=== PATIENT | male | born 1980 | race Caucasian/White ===

== ENCOUNTER 2018-01-28 09:08 | Emergency (ER) | payer SELFPAY ==
[~2018-01-28] VITALS: Ht 175.3 cm; Wt 91.2 kg
[2018-01-28 09:48] LABS: MICROSCOPIC AUTO
[2018-01-28 09:53] LABS: BASOPHILS # (AUTO) 0.12 x10^3/uL (0-0.1); BASOPHILS % (AUTO) 1 % (0-1); EOSINOPHILS # (AUTO) 0.39 x10^3/uL (0-0.4); EOSINOPHILS % (AUTO) 2 % (1-7); LYMPHOCYTES # (AUTO) 2.94 x10^3/uL (1-3.4); LYMPHOCYTES % (AUTO) 18 % (22-44); MD NO; MEAN CORPUSCULAR HEMOGLOBIN 32.2 pg (27.5-34.5); MEAN CORPUSCULAR HGB CONC 35.1 g/dL (33.2-36.2); MEAN CORPUSCULAR VOLUME 91.8 fL (81-97); MEAN PLATELET VOLUME 8.2 fL (7.4-10.4); MONOCYTES # (AUTO) 1.31 x10^3/uL (0.2-0.8); MONOCYTES % (AUTO) 8 % (2-9); NEUTROPHILS # (AUTO) 11.51 x10^3/uL (1.8-6.8); NEUTROPHILS % (AUTO) 71 % (42-75); PLATELET COUNT 257 x10^3/uL (130-400); RED BLOOD COUNT 5.53 x10^6/uL (4.38-5.82); RED CELL DISTRIBUTION WIDTH 12.9 % (9.4-14.8)
[2018-01-28] MEDS ORDERED: MORPHINE SULFATE 4 MG/ML, 1ML IVPush PRN (10:00)
[2018-01-28] MEDS ORDERED: KETOROLAC 30 MG/1 ML IVPush ONE (10:00)
[2018-01-28] MEDS ORDERED: SODIUM CHLORIDE FLUSH 10ML SYR IVF ONE (10:00)
[2018-01-28] MEDS ORDERED: ONDANSETRON 2MG/ML, 2ML IVPush ONE (10:00)
[2018-01-28 10:03] LABS: ALBUMIN 3.8 g/dL (3.4-5.0); ANION GAP 11 mmol/L (5-15); CALCIUM 9.1 mg/dL (8.5-10.1); CHLORIDE 103 mmol/L (98-107); CREATININE 1.61 mg/dL (0.7-1.3)
[2018-01-28] MEDS ORDERED: ONDANSETRON 2MG/ML, 2ML ONE (10:29)
[2018-01-28] MEDS ORDERED: KETOROLAC 30 MG/1 ML ONE (10:29)
[2018-01-28] MEDS ORDERED: MORPHINE SULFATE 4 MG/ML, 1ML ONE (10:29)
[2018-01-28] MEDS ORDERED: HYDROmorphone 1 MG/ML, 1ML IM ONE (11:00)
[2018-01-28] MEDS ORDERED: ONDANSETRON ODT 4 MG PO ONE (11:00)
[2018-01-28] MEDS ORDERED: KETOROLAC 30 MG/1 ML IM ONE (11:00)
[2018-01-28 11:12] VITALS: BP 134/80
== END 2018-01-28 12:33 | disposition left against medical advice (07) ==
LOC: ED 10:00
DX: N20.2 Calculus of kidney with calculus of ureter (principal); N13.30 Unspecified hydronephrosis; G40.909 Epilepsy, unspecified, not intractable, without status epilepticus
CPT/HCPCS: 36415; 74018; 74176; 76770; 80048; 81001; 82040; 85025; 96374; 96375; 99285; J1885; J2405

== ENCOUNTER 2018-01-30 04:09 | Emergency (ER) | payer SELFPAY ==
[~2018-01-30] VITALS: Ht 175.3 cm; Wt 104.5 kg
[2018-01-30] MEDS ORDERED: KETOROLAC 30 MG/1 ML IVPush ONE (05:00)
[2018-01-30] MEDS ORDERED: SODIUM CHLORIDE FLUSH 10ML SYR IVF ONE (05:00)
[2018-01-30] MEDS ORDERED: ONDANSETRON 2MG/ML, 2ML IVPush ONE (05:00)
[2018-01-30] MEDS ORDERED: MORPHINE SULFATE 4 MG/ML, 1ML IVPush PRN (05:00)
[2018-01-30] MEDS ORDERED: ONDANSETRON 2MG/ML, 2ML ONE (05:11)
[2018-01-30] MEDS ORDERED: KETOROLAC 30 MG/1 ML ONE (05:11)
[2018-01-30] MEDS ORDERED: MORPHINE SULFATE 4 MG/ML, 1ML ONE (05:11)
[2018-01-30 05:32] LABS: BASOPHILS # (AUTO) 0.02 x10^3/uL (0-0.1); BASOPHILS % (AUTO) 0 % (0-1); EOSINOPHILS # (AUTO) 0.27 x10^3/uL (0-0.4); EOSINOPHILS % (AUTO) 2 % (1-7); LYMPHOCYTES # (AUTO) 2.15 x10^3/uL (1-3.4); LYMPHOCYTES % (AUTO) 18 % (22-44); MD NO; MEAN CORPUSCULAR HEMOGLOBIN 31.8 pg (27.5-34.5); MEAN CORPUSCULAR HGB CONC 34.7 g/dL (33.2-36.2); MEAN CORPUSCULAR VOLUME 91.5 fL (81-97); MEAN PLATELET VOLUME 8.3 fL (7.4-10.4); MONOCYTES # (AUTO) 0.94 x10^3/uL (0.2-0.8); MONOCYTES % (AUTO) 8 % (2-9); NEUTROPHILS # (AUTO) 8.91 x10^3/uL (1.8-6.8); NEUTROPHILS % (AUTO) 73 % (42-75); PLATELET COUNT 237 x10^3/uL (130-400); RED BLOOD COUNT 4.85 x10^6/uL (4.38-5.82); RED CELL DISTRIBUTION WIDTH 13.1 % (9.4-14.8)
[2018-01-30 05:37] LABS: CHLORIDE 108 mmol/L (98-107)
[2018-01-30 05:38] LABS: ALBUMIN 3.2 g/dL (3.4-5.0); ANION GAP 5 mmol/L (5-15); CREATININE 1.16 mg/dL (0.7-1.3)
[2018-01-30] MEDS ORDERED: TAMSULOSIN 0.4 MG CAP.ER.24H PO ONE (07:00)
[2018-01-30 07:09] LABS: MICROSCOPIC INDICATED
[2018-01-30 07:21] LABS: CULTURE INDICATED? YES
[2018-01-30] MEDS ORDERED: TAMSULOSIN 0.4 MG CAP.ER.24H ONE (07:33)
[2018-01-30] MEDS ORDERED: LEVOFLOXACIN 750 MG TABLET ONE (07:43)
[2018-01-30] MEDS ORDERED: LEVOFLOXACIN 750 MG TABLET PO ONE (08:00)
[2018-01-30 08:06] VITALS: BP 133/72
== END 2018-01-30 08:08 | disposition home or self-care (01) ==
LOC: ED 06:12
DX: N20.2 Calculus of kidney with calculus of ureter (principal); G40.909 Epilepsy, unspecified, not intractable, without status epilepticus
CPT/HCPCS: 36415; 74018; 80048; 81001; 82040; 85025; 87086; 96374; 96375; 99285; J1885; J2405

== ENCOUNTER 2018-02-01 15:12 | Emergency (ER) | payer SELFPAY | END 2018-02-01 15:18 | disposition left against medical advice (07) | LOC: ED 15:12 | DX: R10.30 Lower abdominal pain, unspecified (principal) ==

== ENCOUNTER 2018-02-01 23:57 | Emergency (ER) | payer OTHER ==
[~2018-02-01] VITALS: Ht 175.3 cm; Wt 72.7 kg
[2018-02-02 00:03] VITALS: BP 171/97
[2018-02-02] MEDS ORDERED: PROCHLORPERAZINE 5 MG/ML, 2ML IVPush ONE (00:30)
[2018-02-02] MEDS ORDERED: KETOROLAC 30 MG/1 ML IVPush ONE (00:30)
== END 2018-02-02 00:34 | disposition home or self-care (01) ==
LOC: ED 23:59
DX: R11.2 Nausea with vomiting, unspecified (principal); F17.200 Nicotine dependence, unspecified, uncomplicated
CPT/HCPCS: 99283

== ENCOUNTER 2018-02-08 09:19 | Emergency (ER) | payer SELFPAY ==
[~2018-02-08] VITALS: Ht 175.3 cm; Wt 90.0 kg
[2018-02-08] MEDS ORDERED: FAMOTIDINE 20 MG/2 ML IVPush ONE (09:30)
[2018-02-08] MEDS ORDERED: ONDANSETRON 2MG/ML, 2ML IVPush ONE ×2 (09:30→13:00)
[2018-02-08] MEDS ORDERED: KETOROLAC 30 MG/1 ML IVPush ONE (09:30)
[2018-02-08] MEDS ORDERED: MORPHINE SULFATE 4 MG/ML, 1ML IVPush PRN (09:30)
[2018-02-08] MEDS ORDERED: SODIUM CHLORIDE 0.9% 1,000ML IV ONE (09:30)
[2018-02-08] MEDS ORDERED: ONDANSETRON 2MG/ML, 2ML ONE (09:31)
[2018-02-08] MEDS ORDERED: FAMOTIDINE 20 MG/2 ML ONE (09:32)
[2018-02-08] MEDS ORDERED: KETOROLAC 30 MG/1 ML ONE (09:32)
[2018-02-08] MEDS ORDERED: MORPHINE SULFATE 4 MG/ML, 1ML ONE (09:32)
[2018-02-08 09:53] LABS: BASOPHILS % (AUTO) 1 % (0-1); EOSINOPHILS % (AUTO) 1 % (1-7); LYMPHOCYTES # (AUTO) 1.99 x10^3/uL (1-3.4); LYMPHOCYTES % (AUTO) 16 % (22-44); MD NO; MEAN CORPUSCULAR HEMOGLOBIN 31.5 pg (27.5-34.5); MEAN CORPUSCULAR HGB CONC 34.6 g/dL (33.2-36.2); MEAN CORPUSCULAR VOLUME 91.1 fL (81-97); MEAN PLATELET VOLUME 7.9 fL (7.4-10.4); MONOCYTES % (AUTO) 6 % (2-9); NEUTROPHILS # (AUTO) 9.44 x10^3/uL (1.8-6.8); NEUTROPHILS % (AUTO) 77 % (42-75); PLATELET COUNT 284 x10^3/uL (130-400); RED BLOOD COUNT 4.85 x10^6/uL (4.38-5.82); RED CELL DISTRIBUTION WIDTH 12.9 % (9.4-14.8)
[2018-02-08 10:03] LABS: ALANINE AMINOTRANSFERASE 36 U/L (12-78); ALBUMIN 3.6 g/dL (3.4-5.0); ANION GAP 8 mmol/L (5-15); CALCIUM 8.3 mg/dL (8.5-10.1); CHLORIDE 108 mmol/L (98-107); CREATININE 0.97 mg/dL (0.7-1.3)
[2018-02-08 10:05] LABS: ALKALINE PHOSPHATASE 55 U/L (45-117); BILIRUBIN,TOTAL 0.9 mg/dL (0.2-1.0); TOTAL PROTEIN 6.5 g/dL (6.4-8.2)
[2018-02-08 12:24] VITALS: BP 157/108
[2018-02-08 12:25] LABS: MICROSCOPIC AUTO
[2018-02-08 12:29] LABS: CULTURE INDICATED? YES
[2018-02-08] MEDS ORDERED: ACETAMINOPHEN 500 MG TABLET PO ONE (13:00)
== END 2018-02-08 13:14 | disposition left against medical advice (07) ==
LOC: ED 10:45
DX: N13.30 Unspecified hydronephrosis (principal); N23 Unspecified renal colic
CPT/HCPCS: 36415; 76770; 80053; 81001; 83690; 85025; 87086; 93005; 96361; 96374; 96375; 99285; J1885; J2405; J7030; S0028

== ENCOUNTER 2018-08-01 13:12 | Emergency (ER) | payer SELFPAY ==
[~2018-08-01] VITALS: Ht 175.3 cm; Wt 86.8 kg
[2018-08-01 13:31] VITALS: BP 130/94
[2018-08-01] MEDS ORDERED: CEFTRIAXONE 250 MG IM ONE (14:00)
[2018-08-01] MEDS ORDERED: AZITHROMYCIN 250 MG TABLET PO ONE (14:00)
[2018-08-01] MEDS ORDERED: CEFTRIAXONE 250 MG ONE (14:03)
[2018-08-01] MEDS ORDERED: AZITHROMYCIN 500 MG TABLET ONE (14:03)
[2018-08-01] MEDS ORDERED: HYDROcodone/APAP 5/325 TABLET ONE ×2 (14:03→14:17)
[2018-08-01] MEDS: HYDROcodone/APAP 5/325 TABLET PO PRN ×2 (14:11→14:18)
--- NOTE | 2018-08-01 15:29 | NUR ---
pt left without providing ua or with d/c paperwork, unable to call due to no phone number or address
== END 2018-08-01 15:31 | disposition left against medical advice (07) ==
LOC: ED 15:25
DX: A60.01 Herpesviral infection of penis (principal); Z20.2 Contact with and (suspected) exposure to infections with a predominantly sexual mode of transmission; F17.200 Nicotine dependence, unspecified, uncomplicated
CPT/HCPCS: 96372; 99283; J0696

== ENCOUNTER 2019-01-10 11:32 | Inpatient (IN) | payer OTHER ==
[~2019-01-10] VITALS: Ht 172.7 cm; Wt 84.0 kg
--- NOTE | 2019-01-10 11:32 | NUR ---
PT BROUGHT IN [facility] AND [employer]. HOME AIDE IS AT THE BEDSIDE, AND HANDCUFFS ARE IN PLACE.
--- NOTE | 2019-01-10 11:37 | NUR ---
MD IS AT THE BEDSIDE TO ASSESS
[2019-01-10] MEDS ORDERED: SODIUM CHLORIDE 0.9%, 500ML IVBOLUS ONE (12:00)
[2019-01-10] MEDS ORDERED: PLEASE ENTER HEIGHT AND WEIGHT MC SCH (12:00)
[2019-01-10] MEDS ORDERED: ONDANSETRON 2MG/ML, 2ML IVPush ONE (12:00)
[2019-01-10] MEDS ORDERED: SODIUM CHLORIDE 0.9% 1,000ML IVBOLUS ONE (12:00)
[2019-01-10 12:03] LABS: BASOPHILS # (AUTO) 0.02 x10^3/uL (0-0.1); BASOPHILS % (AUTO) 0 % (0-1); EOSINOPHILS # (AUTO) 0.14 x10^3/uL (0-0.4); EOSINOPHILS % (AUTO) 1 % (1-7); LYMPHOCYTES # (AUTO) 0.93 x10^3/uL (1-3.4); LYMPHOCYTES % (AUTO) 10 % (22-44); MD NO; MEAN CORPUSCULAR HEMOGLOBIN 31.2 pg (27.5-34.5); MEAN CORPUSCULAR HGB CONC 33.2 g/dL (33.2-36.2); MEAN CORPUSCULAR VOLUME 94.2 fL (81-97); MEAN PLATELET VOLUME 7.8 fL (7.4-10.4); MONOCYTES # (AUTO) 0.33 x10^3/uL (0.2-0.8); MONOCYTES % (AUTO) 3 % (2-9); NEUTROPHILS # (AUTO) 8.31 x10^3/uL (1.8-6.8); NEUTROPHILS % (AUTO) 85 % (42-75); PLATELET COUNT 201 x10^3/uL (130-400); RED BLOOD COUNT 5.23 x10^6/uL (4.38-5.82); RED CELL DISTRIBUTION WIDTH 13.7 % (9.4-14.8)
[2019-01-10 12:09] LABS: ALBUMIN 3.2 g/dL (3.4-5.0); ANION GAP 7 mmol/L (5-15); CALCIUM 7.9 mg/dL (8.5-10.1); CHLORIDE 107 mmol/L (98-107)
--- NOTE | 2019-01-10 12:09 | NUR ---
PT TRYING TO GAG HISSELF WITH HIS HANDCUFFED HAND. "I AM TRYING TO GET RID OF IT." WHEN I ASK WHAT HE INGESTED, HE WOULD NOT RESPOND. HE IS ALERT AND ORIENTED, HYPERTENSIVE, BUT OTHERWISE HAS NORMAL VITAL SIGNS. OFFICER ADJUSTED HANDCUFF LOCATION TO PREVENT HARM TO HISSELF. I HAVE MEDICATED HIS NAUSEA PER THE MAR, AND WILL CONTINUE TO MONITOR AND TREAT ORDERED, WELL PRN WHILE ALLOWING POTENTIAL DRUGS TO METABOLIZE.
[2019-01-10 12:12] LABS: ALANINE AMINOTRANSFERASE 354 U/L (12-78); ALKALINE PHOSPHATASE 101 U/L (45-117); BILIRUBIN,TOTAL 1.2 mg/dL (0.2-1.0); CREATININE 0.83 mg/dL (0.7-1.3)
[2019-01-10 12:16] LABS: SALICYLATE LEVEL < 1.7 mg/dL (2.8-20.0)
--- NOTE | 2019-01-10 12:39 | NUR ---
REPORT RECIEVED FROM TABITHA. PT TRANSFERRED TO ROOM
[2019-01-10] MEDS ORDERED: THIA100T67 PO (12:40)
[2019-01-10] MEDS ORDERED: DICY20TA3 PO (12:40)
[2019-01-10] MEDS ORDERED: FOLI-17 PO (12:40)
[2019-01-10] MEDS ORDERED: LEVE500T8 PO (12:40)
[2019-01-10] MEDS ORDERED: LOPE2CAP PO (12:41)
--- NOTE | 2019-01-10 12:41 | NUR ---
GUMARO (RN) IS ASSUMING CARE OF THIS PT AT THIS TIME. SBAR REPORT WAS EXCHANGED AT THE BEDSIDE.
[2019-01-10] MEDS ORDERED: KETOROLAC 30 MG/1 ML IV PRN (13:30)
[2019-01-10] MEDS ORDERED: IBUPROFEN 600 MG TABLET PO PRN (13:30)
[2019-01-10] MEDS ORDERED: ONDANSETRON 2MG/ML, 2ML IVPush PRN (13:30)
[2019-01-10] MEDS ORDERED: hydrALAzine 20 MG/ML, 1ML IVPush PRN (13:30)
[2019-01-10 13:58] VITALS: BP 143/97
[2019-01-10] MEDS ORDERED: LORazepam 0.5MG TABLET PO PRN (14:00)
[2019-01-10] MEDS ORDERED: THIAMINE 200 MG in DEXTROSE 5% 50 ML IVPB ONE (14:00)
[2019-01-10] MEDS ORDERED: FOLIC ACID 5 MG/ML IM ONE (14:00)
[2019-01-10] MEDS ORDERED: LORazepam 1MG TABLET PO PRN ×4 (14:00)
[2019-01-10] MEDS ORDERED: LORazepam 2 MG/ML, 1ML IV PRN ×5 (14:00)
[2019-01-10 14:44] LABS: ACETONE, SERUM Small (20mg/dL) mg/dL (Negative)
[2019-01-10 14:45] VITALS: BP 130/87
[2019-01-10] MEDS: D5%-0.45NACL+KCL 20MEQ 1,000 ML IV SCH (15:15)
[2019-01-10 18:18] LABS: AMPHETAMINE SCREEN, URINE Positive (Negative); BARBITURATE SCREEN, URINE Negative (Negative); BENZODIAZEPINE SCREEN, URINE Positive (Negative); CANNABINOID SCREEN, URINE Positive (Negative); COCAINE SCREEN, URINE Negative (Negative); METHADONE SCREEN, URINE Negative (Negative); OPIATE SCREEN, URINE Negative (Negative)
[2019-01-10 18:33] LABS: MICROSCOPIC INDICATED
[2019-01-10 18:50] LABS: CULTURE INDICATED? NO
[2019-01-10 19:49] VITALS: BP 162/84
[2019-01-10 20:00] VITALS: BP 145/85
[2019-01-11] VITALS (8 sets, daily range): BP systolic 128–151; BP diastolic 80–100
[2019-01-11] MEDS: D5%-0.45NACL+KCL 20MEQ 1,000 ML IV SCH ×2 (00:59→10:51)
[2019-01-11 06:05] LABS: INTERNATIONAL NORMALIZED RATIO 0.99 (0.93-1.1); PROTHROMBIN TIME 10.4 Seconds (9.6-11.5)
[2019-01-11 06:10] LABS: ALBUMIN 3.3 g/dL (3.4-5.0); ANION GAP 7 mmol/L (5-15); CALCIUM 8.4 mg/dL (8.5-10.1); CHLORIDE 103 mmol/L (98-107)
[2019-01-11 06:14] LABS: ALANINE AMINOTRANSFERASE 288 U/L (12-78); ALKALINE PHOSPHATASE 90 U/L (45-117); BILIRUBIN,TOTAL 0.9 mg/dL (0.2-1.0); CREATININE 0.78 mg/dL (0.7-1.3); TOTAL PROTEIN 7.3 g/dL (6.4-8.2)
[2019-01-11 06:17] LABS: MEAN CORPUSCULAR HEMOGLOBIN 30.7 pg (27.5-34.5); MEAN CORPUSCULAR HGB CONC 33.1 g/dL (33.2-36.2); MEAN CORPUSCULAR VOLUME 92.7 fL (81-97); MEAN PLATELET VOLUME 7.8 fL (7.4-10.4); PLATELET COUNT 211 x10^3/uL (130-400); RED BLOOD COUNT 5.37 x10^6/uL (4.38-5.82); RED CELL DISTRIBUTION WIDTH 13.6 % (9.4-14.8)
[2019-01-11 06:47] LABS: BASOPHILS # (AUTO) 0.02 x10^3/uL (0-0.1); BASOPHILS % (AUTO) 0 % (0-1); EOSINOPHILS # (AUTO) 0.02 x10^3/uL (0-0.4); EOSINOPHILS % (AUTO) 0 % (1-7); LYMPHOCYTES % (AUTO) 10 % (22-44); MD SCAN; MONOCYTES # (AUTO) 0.84 x10^3/uL (0.2-0.8); MONOCYTES % (AUTO) 7 % (2-9); NEUTROPHILS # (AUTO) 10.31 x10^3/uL (1.8-6.8); NEUTROPHILS % (AUTO) 83 % (42-75)
[2019-01-11] MEDS: MULTIVITAMINS/MINERALS TABLET PO SCH (09:55)
[2019-01-12] VITALS (7 sets, daily range): BP systolic 121–149; BP diastolic 80–94
[2019-01-12] MEDS: D5%-0.45NACL+KCL 20MEQ 1,000 ML IV SCH ×2 (00:01→10:00)
[2019-01-12 05:26] LABS: BASOPHILS # (AUTO) 0.01 x10^3/uL (0-0.1); BASOPHILS % (AUTO) 0 % (0-1); EOSINOPHILS # (AUTO) 0.02 x10^3/uL (0-0.4); EOSINOPHILS % (AUTO) 0 % (1-7); LYMPHOCYTES # (AUTO) 1.56 x10^3/uL (1-3.4); LYMPHOCYTES % (AUTO) 15 % (22-44); MD NO; MEAN CORPUSCULAR HEMOGLOBIN 31.2 pg (27.5-34.5); MEAN CORPUSCULAR HGB CONC 33.3 g/dL (33.2-36.2); MEAN CORPUSCULAR VOLUME 93.8 fL (81-97); MEAN PLATELET VOLUME 7.6 fL (7.4-10.4); MONOCYTES # (AUTO) 0.66 x10^3/uL (0.2-0.8); MONOCYTES % (AUTO) 6 % (2-9); NEUTROPHILS # (AUTO) 8.18 x10^3/uL (1.8-6.8); NEUTROPHILS % (AUTO) 78 % (42-75); PLATELET COUNT 211 x10^3/uL (130-400); RED BLOOD COUNT 5.56 x10^6/uL (4.38-5.82); RED CELL DISTRIBUTION WIDTH 13.3 % (9.4-14.8)
[2019-01-12 05:42] LABS: ALBUMIN 3.3 g/dL (3.4-5.0); ANION GAP 7 mmol/L (5-15); CALCIUM 8.7 mg/dL (8.5-10.1); CHLORIDE 105 mmol/L (98-107)
[2019-01-12 05:46] LABS: ALANINE AMINOTRANSFERASE 230 U/L (12-78); ALKALINE PHOSPHATASE 86 U/L (45-117); BILIRUBIN,TOTAL 1.3 mg/dL (0.2-1.0); CREATININE 0.67 mg/dL (0.7-1.3); TOTAL PROTEIN 7.4 g/dL (6.4-8.2)
[2019-01-12] MEDS: MULTIVITAMINS/MINERALS TABLET PO SCH (09:00)
[2019-01-12 09:16] LABS: TROPONIN I < 0.015 ng/mL (0.000-0.045)
[2019-01-12 12:18] LABS: TROPONIN I < 0.015 ng/mL (0.000-0.045)
== END 2019-01-12 14:10 | disposition home or self-care (01) | DRG 917 ==
LOC: ED 13:09 → EDIP 13:18 → 4EST 14:02
PROVIDERS: ADMIT Hospitalist; ATTEND Hospitalist
PROC: 0T9B70Z Drainage of Bladder with Drainage Device, Via Natural or Artificial Opening (ICD-10-PCS; principal; 2019-01-10)
DX: T40.1X1A Poisoning by heroin, accidental (unintentional), initial encounter (principal); G92 Toxic encephalopathy; K76.0 Fatty (change of) liver, not elsewhere classified; F31.9 Bipolar disorder, unspecified; R33.9 Retention of urine, unspecified; B19.20 Unspecified viral hepatitis C without hepatic coma; F10.10 Alcohol abuse, uncomplicated; G40.909 Epilepsy, unspecified, not intractable, without status epilepticus; Z87.442 Personal history of urinary calculi; Z76.5 Malingerer [conscious simulation]; Y92.89 Other specified places as the place of occurrence of the external cause; Z88.6 Allergy status to analgesic agent; Z91.013 Allergy to seafood
CPT/HCPCS: 36415; 70450; 76700; 80053; 80307; 81001; 82010; 82140; 83605; 83735; 84484; 85025; 85610; 86704; 86706; 86708; 86803; 87340; 87806; 93005; 99291; G0378; J1885; J2405; J3411; G0475; J3480; J7040

== ENCOUNTER 2019-08-13 01:13 | Emergency (ER) | payer MEDICAID ==
[~2019-08-13] VITALS: Ht 175.3 cm; Wt 97.6 kg
[~2019-08-13 01:13] MED LIST: DICY20TA3 PO; FOLI-17 PO; LEVE500T8 PO; LOPE2CAP PO; THIA100T67 PO
[2019-08-13 01:16] VITALS: BP 134/91
[2019-08-13] MEDS ORDERED: IBUPROFEN 600 MG TABLET ONE (02:00)
[2019-08-13] MEDS ORDERED: ACETAMINOPHEN 325 MG TABLET PO ONE (02:00)
[2019-08-13] MEDS ORDERED: IBUPROFEN 600 MG TABLET PO ONE (02:00)
[2019-08-13] MEDS ORDERED: ACETAMINOPHEN 500 MG TABLET ONE (02:01)
--- NOTE | 2019-08-13 02:04 | NUR ---
PT TAKEN TO CT WITH TECH AT THIS TIME.
--- NOTE | 2019-08-13 02:07 | NUR ---
PT PRESENTS WITH LEFT THIGH REDNESS AND SWELLING.
[2019-08-13 02:11] LABS: BASOPHILS # (AUTO) 0.03 x10^3/uL (0-0.1); BASOPHILS % (AUTO) 0 % (0-1); EOSINOPHILS % (AUTO) 2 % (1-7); LYMPHOCYTES # (AUTO) 2.03 x10^3/uL (1-3.4); LYMPHOCYTES % (AUTO) 24 % (22-44); MD NO; MEAN CORPUSCULAR HEMOGLOBIN 30.9 pg (27.5-34.5); MEAN CORPUSCULAR HGB CONC 34.1 g/dL (33.2-36.2); MEAN CORPUSCULAR VOLUME 90.6 fL (81-97); MEAN PLATELET VOLUME 7.1 fL (7.4-10.4); MONOCYTES # (AUTO) 0.83 x10^3/uL (0.2-0.8); MONOCYTES % (AUTO) 10 % (2-9); NEUTROPHILS # (AUTO) 5.43 x10^3/uL (1.8-6.8); NEUTROPHILS % (AUTO) 64 % (42-75); PLATELET COUNT 231 x10^3/uL (130-400); RED BLOOD COUNT 4.82 x10^6/uL (4.38-5.82); RED CELL DISTRIBUTION WIDTH 12.6 % (9.4-14.8)
[2019-08-13 02:15] LABS: ALBUMIN 3.1 g/dL (3.4-5.0); ANION GAP 4 mmol/L (5-15); CALCIUM 8.4 mg/dL (8.5-10.1); CHLORIDE 105 mmol/L (98-107); CREATININE 0.98 mg/dL (0.7-1.3)
[2019-08-13] MEDS ORDERED: SULFAMETH./TRIMETHOPRIM DS 800MG/160MG TABLET PO ONE (03:00)
[2019-08-13] MEDS ORDERED: CEPHALEXIN 500 MG CAPSULE PO ONE (03:00)
[2019-08-13] MEDS ORDERED: CEPHALEXIN 500 MG CAPSULE ONE (03:01)
[2019-08-13] MEDS ORDERED: SULFAMETH./TRIMETHOPRIM DS 800MG/160MG TABLET ONE (03:02)
== END 2019-08-13 03:32 | disposition home or self-care (01) ==
LOC: ED 02:13
DX: L03.116 Cellulitis of left lower limb (principal); F17.200 Nicotine dependence, unspecified, uncomplicated; V19.9XXA Pedal cyclist (driver) (passenger) injured in unspecified traffic accident, initial encounter; Y93.89 Activity, other specified; Y92.410 Unspecified street and highway as the place of occurrence of the external cause; Y99.8 Other external cause status
CPT/HCPCS: 36415; 80048; 82040; 83605; 84145; 85025; 99284